=== PATIENT | female | born 1950 | race African-American/Black ===

== ENCOUNTER → 2018-10-25 | Outpatient (CLI) | payer MEDICARE, OTHER ==
--- NOTE | 2018-10-25 14:02 | RADIOLOGY REPORT (SQ) ---
EXAM DESCRIPTION: MRI RT LOWER EXTREMITY WITHOUT COMPLETED DATE/TIME: 10/25/2018 1:17 pm REASON FOR STUDY: S76.191A INJ RIGHT QUADRICEPS MUSCLE, FASCIA AND TENDON, INIT ENCNTR COMPARISON: None. TECHNIQUE: Multiplanar imaging to include fat sensitive and fluid sensitive sequences. LIMITATIONS: None. FINDINGS: Bones: No significant finding. No marrow replacement or occult fracture. Muscles: There is generalize diffuse muscle atrophy. There is altered signal involving the rectus f emoris, vastus lateralis, vastus intermedius, vastus medialis, and sartorius with increased signal in tensity on T2 weighted imaging. 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 Site of nerve compression not identified. 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 There is also marked generalized muscle atrophy. TECHNICAL DOCUMENTATION: JOB ID: [id number] [employer]- All Rights Reserved Reading location - IP/workstation name: [email or web address]
== END ==
LOC: RAD 12:20
PROVIDERS: ATTEND Orthopaedic Surgery
DX: S76.191A Other specified injury of right quadriceps muscle, fascia and tendon, initial encounter (principal); X58.XXXA Exposure to other specified factors, initial encounter; Y93.9 Activity, unspecified; Y92.9 Unspecified place or not applicable

== ENCOUNTER → 2018-11-15 | Outpatient (CLI) | payer MEDICARE, OTHER ==
--- NOTE | 2018-11-15 15:48 | RADIOLOGY REPORT (SQ) ---
EXAM DESCRIPTION: MRI RT LOWER JOINT WITHOUT COMPLETED DATE/TIME: 11/15/2018 1:58 pm REASON FOR STUDY: S76.191D INJ RIGHT QUADRICEPS MUSCLE, FASCIA AND TENDON, SUBS ENCNTR S76.191D INJ RIGHT QUADRICEPS MUSCLE, FASCIA AND TENDON, SUB COMPARISON: None. TECHNIQUE: Rightknee images acquired and stored on PACS. Multiplanar images include fat sensitive s equences as T1, water sensitive sequences as FST2 or STIR, cartilage sensitive sequences as FSPD, and gradient echo sequences. LIMITATIONS: None. FINDINGS: JOINT AND BURSAE: Small suprapatellar knee joint effusion. BONE CORTEX AND MARROW: No alteration of signal to suggest marrow replacement. No worrisome bone lesi ons. No occult fracture. ACL: Intact. No degeneration or ganglion cyst. PCL: Intact. MCL: Intact. No periligamentous edema or fluid. LCL: Intact. No periligamentous edema or fluid. MEDIAL MENISCUS: Mild truncation of the inner edge medial meniscus. No gross meniscal tear or parame niscal cyst. LATERAL MENISCUS: Mild truncation of the inner edge lateral meniscus. No gross meniscal tear or para meniscal cyst. MEDIAL COMPARTMENT: Mild diffuse chondromalacia. No bone bruises or reactive marrow edema. No osteoph ytes. LATERAL COMPARTMENT: Mild diffuse chondromalacia. No bone bruises or reactive marrow edema. No osteop hytes. PATELLA: Diffuse patellar chondromalacia. No subchondral cysts. Medial and lateral retinacula intact. EXTENSOR MECHANISM: Intact. Quadriceps and patella tendons normal. SOFT TISSUES: Adjacent muscles and subcutaneous tissues normal. Normal flow void in popliteal artery and vein. OTHER: No other significant finding. 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 Mild truncation of the inner edge medial and lateral menisci without through and through meniscal tea r. TECHNICAL DOCUMENTATION: JOB ID: [id number] [employer]- All Rights Reserved Reading location - IP/workstation name: [email or web address]
== END ==
LOC: RAD 12:45
PROVIDERS: ATTEND Orthopaedic Surgery
DX: S76.191D Other specified injury of right quadriceps muscle, fascia and tendon, subsequent encounter (principal)

== ENCOUNTER → 2018-11-19 | Outpatient (CLI) | payer MEDICARE, OTHER ==
--- NOTE | 2018-11-19 12:57 | RADIOLOGY REPORT (SQ) ---
EXAM DESCRIPTION: MRI LUMBAR SPINE WITHOUT COMPLETED DATE/TIME: 11/19/2018 12:29 pm REASON FOR STUDY: R LEG WEAKNESS R53.1 WEAKNESS COMPARISON: None. TECHNIQUE: Sagittal and Axial imaging includes T1, T2, STIR and gradient echo sequences. Coronal T2/ HASTE imaging. LIMITATIONS: None. FINDINGS: VISUALIZED UPPER ABDOMEN: Limited evaluation. No acute or suspicious findings suggested. SEGMENTATION: No transitional anatomy. The lowest well-developed disc space is labeled L5-S1. ALIGNMENT: Anatomic. VERTEBRAE: Intact. BONE MARROW: Normal. No marrow replacement or reactive changes. DISC SIGNAL: There is decreased signal intensity at L3-4. POSTERIOR ELEMENTS: Generally intact. No pars defect evident. HARDWARE: None in the spine. CORD AND CONUS: Normal in size and signal intensity. Conus at the L1 level. SOFT TISSUES: No aortic aneurysm seen. No bulky retroperitoneal adenopathy or mass. No paraspinal mas s or fluid. L1-L2: No significant spinal stenosis or exit foraminal stenosis. L2-L3: Ligament and facet hypertrophy narrows the dorsal aspect of spinal canal. No foraminal stenos is. L3-L4: Ligament and facet hypertrophy. No foraminal stenosis. L4-L5: Ligament and facet hypertrophy. No foraminal stenosis. L5-S1: No significant spinal stenosis or exit foraminal stenosis. LOWER THORACIC: Incompletely imaged. No stenosis seen. SACRUM: Visualized upper sacrum intact. OTHER: No other significant findings. IMPRESSION: Facet arthropathy narrows the dorsal aspect of spinal canal from L2 to L5. No foraminal stenoses are present. TECHNICAL DOCUMENTATION: JOB ID: [id number] [employer]- All Rights Reserved Reading location - IP/workstation name: [email or web address]
== END ==
LOC: RAD 11:27
PROVIDERS: ATTEND Orthopaedic Surgery
DX: M12.88 Other specific arthropathies, not elsewhere classified, other specified site (principal); R53.1 Weakness
CPT/HCPCS: 72148